=== PATIENT | male | born 1955 | race Caucasian/White ===

== ENCOUNTER 2018-07-10 17:04 | Emergency (ER) | payer OTHER, SELFPAY ==
[2018-07-10 17:06] VITALS: BP 184/96; PULSE 83; RESP 16; TEMP 36.2; O2SAT 91; BMI 28.7
--- NOTE | 2018-07-10 17:07 | EKG12_ITS ---
Test Reason : CP Blood Pressure : / mmHG Vent. Rate : 080 BPM Atrial Rate : 080 BPM P-R Int : 174 ms QRS Dur : 086 ms QT Int : 358 ms P-R-T Axes : 041 003 070 degrees QTc Int : 412 ms Normal sinus rhythm Septal infarct , age undetermined Abnormal ECG Confirmed by FANTA HAQUE ([id number]), editor farm journal KAVITHA LOPEZ ([id number]) on 07/14/2018 11:16:54 AM Referred By: NEVAEH/ARNULFO Confirmed By:FANTA HAQUE
--- NOTE | 2018-07-10 17:11 | RAD_ITS ---
STUDY: X-RAY CHEST REASON FOR EXAM: Male, 63 years old. Chest pain TECHNIQUE: Frontal view of the chest COMPARISON: None. FINDINGS: The lungs are clear. There are no pleural effusions. There is no pneumothorax. The heart is normal in size. The visualized osseous structures are within normal limits. RAD/Chest 1 View (Portable) IMPRESSION: No acute thoracic pathology. Electronically Signed: Evan Frazier, at 17:30 EDT Tel , Service support ,
[2018-07-10 17:36] LABS: Absolute Lymphocyte Count 1.13 X10^3/ul (0.83-4.51); Absolute Neutrophil Count 5.8 X10^3/uL (2.0-7.7); Basophil# 0.01 X10^3/uL; Basophil% 0.1 % (0-1); Eosinophil# 0.08 X10^3/uL; Hematocrit 42.6 % (40-54); Hemoglobin 14.4 g/dl (13.0-16.5); Lymphocyte # 1.13 X10^3/ul (4.0); Lymphocyte % 13.8 % (19-41); Mean Corp Hgb Conc 33.8 g/gl (32-36); Mean Corpuscular Hgb 30.6 pg (27.0-32.0); Mean Corpuscular Volume 90.6 fL (80-94); Mean Platelet Vol. 10.3 fl (6.2-12.0); Monocyte# 1.16 X10^3/uL; Monocyte% 14.2 % (0-10); Neutrophil # 5.77 X10^3/uL (2.7-7.7); Neutrophil % 70.7 % (47-70); Platelet Count 175 K/mm3 (150-450); RBC Distribution Width CV 13.4 % (11.6-14.6); RBC Distribution Width SD 44.7 fl (35.1-43.9); White Blood Count 8.2 K/mm3 (4.4-11.0)
[2018-07-10 17:37] LABS: POSITIVE COUNT NO; POSITIVE DIFFERENTIAL NO; POSITIVE MORPHOLOGY NO
[2018-07-10 17:51] LABS: BUN 15 mg/dL (7-18); Creatinine, Serum 0.91 mg/dL (0.70-1.30); Glucose 95 mg/dL (74-106)
[2018-07-10 17:52] LABS: Anion Gap 1 (5-15); BUN/Creat Ratio 16.5 RATIO (10-20); Calcium,Total 8.8 mg/dL (8.5-10.1); Chloride 106 mmol/L (98-107); EST Glomerular Filtration Rate 90 mL/min (>60); Est Glom Filt Rate - Afr Amer 108 mL/min (>60); Estimated Creatinine Clearance 85.79 ml/min; Potassium 4.1 mmol/L (3.5-5.1); Sodium Level 136 mmol/L (136-145)
[2018-07-10 18:12] VITALS: BP 167/89; PULSE 84; RESP 23; TEMP 36.2; O2SAT 93
--- NOTE | 2018-07-10 18:24 | ED.DCSUM_ITS ---
History of Present Illness Chief Complaint: Chest Pain Informant: Patient Onset: Weeks - 2-3 Context: Gradual Onset Timing: Intermittent Quality: pressure Location: substernal Maximum Severity: Moderate Worsened by: exertion Relieved by: rest Associated Symptoms: GROVE, orthopnea, occ prod cough Narrative: Patient states cough, chest discomfort, and dyspnea with exertion all simultaneously several weeks ago and has been gradually worsening. When he rests, his breathing is much better. He has a history of a stent in his heart and feels like this chest pressure is similar to when he needed that. He has not presented for evaluation in the past couple weeks until today. He denies any swelling or pain in his legs. No fevers, earache, sore throat but he has had runny nose nasal congestion. He has no hemoptysis, takes no anticoagulants, and has been coughing up occasional clear mucus. Active smoker. No known history of COPD or asthma. - Past Medical History (1) CAD (coronary artery disease), [place] coronary artery Status: Chronic Past Medical History - Allergies and Home Meds Allergies/Adverse Reactions: Allergies adhesive tape Allergy (Verified 07/10/18 18:12) Rash Primary Care Physician: NOT,DEFINED [NON-STAFF] - Surgical History: angioplasty - w/ stent, coronary Lives: Spouse/ Significant Other Smoking Status: Light Smoker (<10/day) Drugs: None Review of Systems General: Denies: Chills, Fever, Sweats Eyes: Denies: Visual changes - bilaterally, Diplopia ENT: Denies: Rhinorrhea, Sore throat Cardiovascular: Reports: Chest pain. Denies: Palpitations, Heart racing Respiratory: Reports: Dyspnea, Cough, Sputum, Dyspnea on exertion, Orthopnea. Denies: Paroxysmal nocturnal dyspnea Gastrointestinal: Denies: Abdominal pain, Nausea, Vomiting, Diarrhea, Melena, Hematochezia Genitourinary: Denies: Dysuria, Hematuria, Frequency Musculoskeletal: Denies: Back pain, Swelling, Extremity Pain Skin: Denies: Rash, Wounds Neurological: Denies: Headache, Weakness, Numbness Physical Exam Vital Signs/Narrative: Vital Signs Temp Pulse Resp BP Pulse Ox 07/10/18 18:12 97.2 F L 84 23 H 167/89 H 93 07/10/18 17:06 97.1 F L 83 16 184/96 H 91 Inital Vital Signs reviewed: Yes General: Well nourished, Well developed, No Acute Distress Head: Normocephalic, Atraumatic Eyes: Perrl, EOMI ENT: Moist mucous membranes, No rhinorrhea, TM's clear, Nasal congestion, - - POP clear. EAC nontender bilat, significant cerumen. Negative for: Sinus tenderness Neck: Supple, Nontender, No lymphadenopathy, No JVD Cardiovascular: Regular rate, Regular rhythm, No murmurs, Normal S1, Normal S2. Negative for: Tachycardia Respiratory: No distress, Chest nontender, Wheezing - bibasilar Abdomen: Soft, Nontender, Nondistended, Normal bowel sounds Back: Nontender, Normal Inspection Extremities: Nontender, No edema. Negative for: Calf Tenderness Skin: Normal color, No rash, No Trauma Neurological: Alert, Oriented x3, Cranial nerves II-XII grossly intact, Normal Strength, Normal Sensation Psychological: Normal affect, Normal Mood Diagnostic/Tx/Re-eval Impressions Chest X-Ray 07/10/18 17:11 IMPRESSION: No acute thoracic pathology. Electronically Signed: Evan Frazier, at 17:30 EDT Tel , Service support , 07/10/18 17:11 Chest 1 View (Portable) [RAD] Stat Laboratory Results 07/10/18 07/10/18 07/10/18 17:15 17:15 17:15 WBC 8.2 RBC 4.70 Hgb 14.4 Hct 42.6 MCV 90.6 MCH 30.6 MCHC 33.8 RDW 13.4 RDW Differential 44.7 H Plt Count 175 MPV 10.3 Immature Gran % (Auto) 0.200 Neut % (Auto) 70.7 H Lymph % (Auto) 13.8 L [place] % (Auto) 14.2 H Eos % (Auto) 1.0 Baso % (Auto) 0.1 Absolute Neuts (auto) 5.8 Absolute Lymphs (auto) 1.13 Total Counted Not Reportable Sodium 136 Potassium 4.1 Chloride 106 Carbon Dioxide 29.0 Anion Gap 1 L BUN 15 Creatinine 0.91 Estim Creat Clear Calc 85.79 Est GFR (MDRD) Af Amer 108 Est GFR (MDRD) Non-Af 90 BUN/Creatinine Ratio 16.5 Glucose 95 Calcium 8.8 Troponin I < 0.015 B-Natriuretic Peptide 32.9 - Rhythm Strip Rhythm Strip: Sinus Rhythm Rate: 80 Ectopy: None - EKG Initial EKG Interpretation: Sinus Rhythm, No Acute Injury Pattern, - - V1-2 Q waves w/o ST seg deviation; likely old septal infarct Prior: No Prior - Medical Decision Making Cardiac work-up is negative. Patient states that his chest pressure has basically been there 100% of the time for the past couple weeks. This makes acute coronary syndrome very unlikely given the ancillaries. Chest x-ray showed no pneumonia. I suspect this is infectious and he may have underlying COPD. I gave him a dose of Solu-Medrol, a breathing treatment that helped, and will discharge him with a prescription for antibiotics and prednisone and close outpatient follow-up. He is comfortable with that plan. ED Disposition - Plan for ED Patient: Disposition: Home or Assisted Living Diagnosis: Acute lower respiratory infection, Chest pain, unspecified Instructions: ED Chest Pain NonCardiac, Acute Bronchitis Prescriptions: Prednisone [Deltasone] 40 mg PO DAILY #10 tablet Doxycycline 100 mg PO BID #20 capsule Referrals: Doctor,Your [STAFF PHYSICIAN] - 5-7 Days Additional Instructions: Do not start prednisone until tomorrow, 07/11
[2018-07-10] MEDS: MethylPREDNISolone 125 MG/2 ML Vial IV (18:42)
[2018-07-10 18:56] VITALS: PULSE 86; RESP 20
[2018-07-10] MEDS: Ipratropium/Albuterol Sulfate 3 ML AMPUL.NEB INHALATION (18:56)
[2018-07-10 19:00] VITALS: BP 174/92; PULSE 78; RESP 26; TEMP 36.2; O2SAT 91
[2018-07-10 19:03] LABS: BNP,B-Type NATRIURETIC PEPTIDE 32.9 pg/mL (0-100)
[2018-07-10 20:00] VITALS: BP 161/96; PULSE 80; RESP 23; O2SAT 91
== END 2018-07-10 20:50 | disposition home or self-care (01) ==
PROVIDERS: Emergency Provider Emergency Medicine
DX: J22 Unspecified acute lower respiratory infection (principal); R07.9 Chest pain, unspecified; I25.10 Atherosclerotic heart disease of native coronary artery without angina pectoris; Z95.5 Presence of coronary angioplasty implant and graft; F17.200 Nicotine dependence, unspecified, uncomplicated
CPT/HCPCS: 71045; 80048; 83880; 84484; 85025; 93005; 94640; 96374; 99285; A4216